=== PATIENT | female | born 1955 | race Caucasian/White ===

== ENCOUNTER → 2020-05-26 16:07 | Outpatient (CLI) | payer BC, SELFPAY ==
[2020-05-26 16:19] LABS: Basophils # 0.1 K/mm3 (0-0.2); Basophils % 0.9 % (0.1-2.0); Eosinophils # 0.3 K/mm3 (0.0-0.4); Eosinophils % 2.4 % (0.1-12.0); Hematocrit 50.1 % (37.0-47.0); Hemoglobin 16.4 g/dL (12.2-16.2); Lymphocytes # 4.7 K/mm3 (0.7-4.5); Lymphocytes % 40.5 % (10-50); Mean Corpuscular HGB Conc 32.7 g/dL (31.8-35.4); Mean Corpuscular Hemoglobin 30.7 pg (27.0-31.2); Mean Corpuscular Volume 93.9 fl (81-99); Mean Platelet Volume 10.8 fl (7.4-10.4); Monocytes # 0.6 K/mm3 (0.1-1.0); Monocytes % 5.3 % (1.7-9.3); Neutrophils # 5.9 K/mm3 (1.8-7.8); Neutrophils % 50.9 % (37.0-80.0); Platelet Count 231 K/mm3 (142-424); Red Blood Count 5.34 M/mm3 (4.20-5.40); Red Cell Distribution Width 13.7 % (11.5-17.5); White Blood Count 11.6 K/mm3 (4.8-10.8)
[2020-05-26 16:58] LABS: Alanine Aminotransferase 25 U/L (12-78); Albumin Level 4.1 g/dl (3.5-5.0); Albumin/Globulin Ratio 1.5 (1.1-1.8); Alkaline Phosphatase 206 U/L (38-126); Anion Gap 13.2 mEq/L (5-15); Aspartate Amino Transferase 27 U/L (14-36); Bilirubin,Total 0.5 mg/dl (0.2-1.3); Blood Urea Nitrogen 14 mg/dl (7-17); Calcium 9.7 mg/dl (8.4-10.2); Carbon Dioxide 30 mmol/L (22.0-30.0); Chloride 95 mmol/L (98-107); Chol/HDL Ratio 3.4 (1-3.5); Cholesterol 148 mg/dl (140-200); Estimated Glomerular Filt Rate 73 ml/min (>60); GFR (African American) 88 ML/MIN (>60); Globulin 2.7 g/dL (1.3-3.2); HDL Cholesterol 44 mg/dl (40-60); Potassium 4.2 mmoL/L (3.5-5.1); Sodium 134 mmol/L (136-145); Total Protein,Serum 6.8 g/dl (6.3-8.2); Triglycerides 196 mg/dl (30-150); VLDL Cholesterol 39 mg/dL (0-40)
[2020-05-26 17:08] LABS: Direct LDL Cholesterol 71.78 mg/dL (100-129)
[2020-05-26 17:12] LABS: 25-OH Vitamin D, Total 14.7 ng/mL (30-100)
[2020-05-26 17:13] LABS: Free T4 (Free Thyroxine) 1.61 ng/dl (0.78-2.19)
[2020-05-26 17:28] LABS: Thyroid Stimulating Hormone 3.15 uIU/mL (0.465-4.68)
[2020-05-26 17:56] LABS: Glucose 499 mg/dl (74-100)
== END ==
PROVIDERS: Visit Provider Emergency Medicine
DX: E11.9 Type 2 diabetes mellitus without complications (principal); E55.9 Vitamin D deficiency, unspecified; Z79.84 Long term (current) use of oral hypoglycemic drugs
CPT/HCPCS: 80053; 80061; 82306; 83036; 84439; 84443; 85025

== ENCOUNTER → 2020-06-03 13:02 | Outpatient (CLI) | payer BC, SELFPAY ==
--- NOTE | 2020-06-03 13:02 | MR_ITS ---
PROCEDURE: MR LUMBAR SPINE WO CON CLINICAL INDICATION: back pain LOW BCK PAIN, HX SURGERY 15-20 YEARS AGO. NO PRIOR, NO INJURY COMPARISON: No exams were available for comparison TECHNIQUE: Standard multiplanar multiecho sequences are performed without contrast. 3-D MIP and myelographic images are also rendered and reviewed FINDINGS: There is normal alignment. The spinal cord ends at the L1 level. L1-L2: Mild degenerative disc disease with mild facet and ligamentum hypertrophy. The disc is bulging anteriorly with endplate osteophytes anteriorly. There is mild bilateral lateral recess and foraminal narrowing. L2-L3: Facet and ligamentum hypertrophy with bilateral lateral recess narrowing right greater than left and with mild bilateral foraminal narrowing right greater than left. L3-L4: There is a central herniated disc with superior extrusion of the disc. The disc is extruded superiorly by approximately 1.4 cm. The disc is central in nature measures 8 mm in transverse dimension and 6 mm in AP dimension. Facet and ligamentum hypertrophy is present with resultant moderate to severe bilateral lateral recess narrowing with impingement upon the traversing L4 nerve roots on both sides right greater than left. There is severe right and moderate to severe left-sided foraminal narrowing. There is canal stenosis at this level. L4-5: Degenerative disc disease. There has been lumbar surgery with laminectomy at L5 and S1 with enlargement of the thecal sac at this area.. There is facet and ligamentum hypertrophy at L4-5 with resultant severe bilateral foraminal narrowing. L5-S1: Degenerative disc disease with facet and ligamentum hypertrophy with mild bilateral foraminal narrowing. IMPRESSION: 1. Mild multilevel lumbar spondylosis. Please see above for detailed description at each level. 2. There is a central herniated disc at L3-L4 with superior extrusion of the disc. The disc is extruded superiorly by approximately 1.4 cm. The disc is central in nature measures 8 mm in transverse dimension and 6 mm in AP dimension. Facet and ligamentum hypertrophy is present with resultant moderate to severe bilateral lateral recess narrowing with impingement upon the traversing L4 nerve roots on both sides right greater than left. There is severe right and moderate to severe left-sided foraminal narrowing. There is canal stenosis at this level. 3. Postsurgical changes at L5 and S1 Dictated by: Hudson Ruff MD 06/04/2020 12:04 Hudson Ruff MD in [place] 06/04/2020 12:04
--- NOTE | 2020-06-03 13:02 | MR_ITS ---
PROCEDURE: MR CERVICAL SPINE WO CON CLINICAL INDICATION: neck pain NECK PAIN X2-3 MONTHS, NO INJURY. COMPARISON: No exams were available for comparison TECHNIQUE: Standard multiplanar multiecho sequences are performed without contrast. 3-D MIP and myelographic images are also rendered and reviewed FINDINGS: There is normal alignment. The craniocervical junction has an unremarkable appearance. C2-C3: Minimal central disc protrusion versus mild prominence of the posterior longitudinal ligament. This is without impingement C3-C4: Unremarkable. C4-C5: Minimal bulging disc with a minimal right paracentral disc protrusion without impingement. C5-C6: Minimal bulging disc without impingement. C6-C7: Minimal broad-based central and right paracentral disc protrusion without impingement. C7-T1: Unremarkable. No extruded herniated disc or canal stenosis. IMPRESSION: Mild multilevel spondylosis. No canal stenosis or extruded herniated disc. Please see above for detailed description at each level. Dictated by: Hudson Ruff MD 06/04/2020 11:43 Hudson Ruff MD in [place] 06/04/2020 11:43
== END ==
PROVIDERS: PCP Emergency Medicine; Visit Provider Emergency Medicine
DX: M54.2 Cervicalgia (principal); M54.9 Dorsalgia, unspecified; M54.5 Low back pain
CPT/HCPCS: 72141; 72148; 76376

== ENCOUNTER → 2020-06-16 14:26 | Outpatient (CLI) | payer BC, SELFPAY ==
[2020-06-16 15:09] LABS: Amphetamine/Metha Screen,Urine Negative ng/ml (<1000)
[2020-06-16 15:10] LABS: Barbiturates Screen,Urine Negative ng/ml (<200)
[2020-06-16 15:11] LABS: Benzodiazepines Screen,Urine Negative ng/ml (<200); Cannabinoid Screen,Urine Negative ng/ml (<50)
[2020-06-16 15:12] LABS: Cocaine Screen,Urine Negative ng/ml (<300); Methadone Screen,Urine Negative ng/ml (<300)
[2020-06-16 15:13] LABS: Opiate Screen,Urine Negative ng/ml (<300)
[2020-06-16 15:14] LABS: Phencyclidine Screen,Urine Negative ng/ml (<25)
[2020-06-16 15:34] LABS: Microalbumin/Creatinine Ratio 11.8
[2020-06-16 15:35] LABS: Creatinine,Urine Random 64 mg/dL (Not Estab.)
== END ==
PROVIDERS: Visit Provider Emergency Medicine
DX: E11.9 Type 2 diabetes mellitus without complications (principal); Z79.899 Other long term (current) drug therapy; Z79.84 Long term (current) use of oral hypoglycemic drugs
CPT/HCPCS: 80305; 82043; 82570

== ENCOUNTER → 2020-07-02 10:39 | Outpatient (CLI) | payer BC, SELFPAY ==
--- NOTE | 2020-07-02 10:41 | US_ITS ---
APPROVED REPORT Exam Type: Ankle to Brachial Index Portable Track Line Marker: RT Arcelia(R) Indications Claudication: Bilaterally Rest Pain: Bilaterally Current Smoker Risk Factors Hypertension Hyperlipidemia Diabetes Current Smoker Pressures/Indices Right Indices Left Indices Brachial 118.00 mmHg Brachial 114.00 mmHg Low Thigh 134.00 mmHg 1.14 Low Thigh 130.00 mmHg 1.10 Calf 150.00 mmHg 1.27 Calf 136.00 mmHg 1.15 Ankle(PT) 137.00 mmHg 1.16 Ankle(PT) 143.00 mmHg 1.21 Ankle(DP) 131.00 mmHg 1.11 Ankle(DP) 137.00 mmHg 1.16 Digit 108.00 mmHg 0.92 Digit 121.00 mmHg 1.03 Findings RT ISAIAH=1.2 LT ISAIAH=1.0 RT TBI=0.9 LT TBI=1.0 Normal pulses Normal waveforms Conclusion RT ISAIAH=1.2 LT ISAIAH=1.0 RT TBI=0.9 LT TBI=1.0 Normal pulses Normal waveforms Normal appearing resting noninvasive lower extremity arterial study. Electronically signed by : Hudson Ruff MD 07/02/2020 14:15:28
== END ==
PROVIDERS: PCP Emergency Medicine; Visit Provider Nurse Practitioner
DX: R09.89 Other specified symptoms and signs involving the circulatory and respiratory systems (principal)
CPT/HCPCS: 93923

== ENCOUNTER → 2020-07-14 14:43 | Outpatient (CLI) | payer BC, SELFPAY ==
[2020-07-14 18:04] LABS: Amphetamine/Metha Screen,Urine Negative ng/ml (<1000)
[2020-07-14 18:05] LABS: Barbiturates Screen,Urine Negative ng/ml (<200); Benzodiazepines Screen,Urine Negative ng/ml (<200)
[2020-07-14 18:06] LABS: Cannabinoid Screen,Urine Negative ng/ml (<50)
[2020-07-14 18:07] LABS: Cocaine Screen,Urine Negative ng/ml (<300); Methadone Screen,Urine Negative ng/ml (<300)
[2020-07-14 18:08] LABS: Opiate Screen,Urine Negative ng/ml (<300)
[2020-07-14 18:09] LABS: Phencyclidine Screen,Urine Negative ng/ml (<25)
== END ==
PROVIDERS: Visit Provider Emergency Medicine
DX: Z79.899 Other long term (current) drug therapy (principal)
CPT/HCPCS: 80305

== ENCOUNTER → 2020-08-11 13:39 | Outpatient (CLI) | payer BC, SELFPAY ==
[2020-08-13 14:01] LABS: C-Peptide 2.9 ng/mL (1.1-4.4)
== END ==
PROVIDERS: Visit Provider Nurse Practitioner Family
DX: E11.9 Type 2 diabetes mellitus without complications (principal); Z79.84 Long term (current) use of oral hypoglycemic drugs
CPT/HCPCS: 84681

== ENCOUNTER → 2020-08-13 19:25 | Outpatient (CLI) | payer BC, SELFPAY ==
[2020-08-13 20:03] LABS: Amphetamine/Metha Screen,Urine Negative ng/ml (<1000); Barbiturates Screen,Urine Negative ng/ml (<200)
[2020-08-13 20:04] LABS: Benzodiazepines Screen,Urine Negative ng/ml (<200)
[2020-08-13 20:05] LABS: Cannabinoid Screen,Urine Negative ng/ml (<50); Cocaine Screen,Urine Negative ng/ml (<300)
[2020-08-13 20:06] LABS: Methadone Screen,Urine Negative ng/ml (<300)
[2020-08-13 20:07] LABS: Opiate Screen,Urine Negative ng/ml (<300); Phencyclidine Screen,Urine Negative ng/ml (<25)
== END ==
PROVIDERS: Visit Provider Emergency Medicine
DX: M51.36 Other intervertebral disc degeneration, lumbar region (principal)
CPT/HCPCS: 80305

== ENCOUNTER → 2020-09-02 09:08 | Outpatient (POV) | payer BC, SELFPAY ==
[2020-09-02 09:15] VITALS: BP 117/61; PULSE 74; RESP 18; TEMP 36.8; O2SAT 98; BMI 25.9
--- NOTE | 2020-09-02 10:26 | HMH.PMCON ---
Assessment and Plan (1) Lumbar radiculopathy Status: Chronic Category: Medical Code(s): M54.16 - Radiculopathy, lumbar region (2) Spinal stenosis, lumbar region with neurogenic claudication Status: Chronic Category: Medical Code(s): M48.062 - Spinal stenosis, lumbar region with neurogenic claudication (3) DDD (degenerative disc disease) Status: Chronic Category: Medical - Assessment and plan all Dx Assessment and Plan for all problems:: We will schedule the patient for an epidurogram. I do not know if she is a candidate for minimally invasive lumbar decompression due to her previous surgery. She is unsure of what kind of surgery she had. I will follow-up with her after reassess her symptoms at that time she has been instructed to call the office if she has any issues prior to her next appointment. Dr. Higuera has reviewed this note and agrees with this plan of care. This note was dictated using voice recognition software and may contain errors or omissions HPI - Data of Consult Consult date: 09/02/20 Requesting Physician: Ronda Singletary APRN Primary Care Provider: Luis Daniel Alonzo MD - Consult Narrative Reason for consult: Back pain History of present illness: Ms. Loomis is a 65 year old female who presents today for consultation in regard to her back pain. Patient rates it a 6 out of 10 she has numbness and tingling in bilateral lower extremities. She is having surgery by Dr. Keenan in the past. Patient is unsure of what kind of surgery she had. She has a recent MRI showing disc bulge along with ligamentum flavum hypertrophy patient states that most of her pain is when she standing and walking she gets relief by leaning forward or sitting down. We did discuss a minimally invasive lumbar decompression. Patient has been seen by the [facility] and received injections however she states she was sedated during this time and has no idea what injection she received. She states that she got no relief from any of them. She was also given oxycodone at that time. She states that she then moved to [place] for 2 years and has recently returned. CC: Ronda Singletary APRN [facility] History I have reviewed the patient's past medical history: Yes Medical History: Reports:: Asthma, Cancer, Diabetes Mellitus Type 2, Hyperlipidemia, Hypertension Denies:: Diabetes Mellitus Type 1, MRSA *Have you ever received a pneumonia vaccine?: Yes *Have you received a flu vaccine this season?: Yes Other Medical History: Reports: Arthritis Other Surgeries: Yes: Appendectomy, Cancer Surgery, Hysterectomy-Total, Other Amputation: No Fractures: No - *Social History Smoking Status: Current every day smoker Tobacco Type: cigarettes # Packs/Day (cigarettes): 1 Alcohol Intake: never Substance Use Type: denies use *Occupational Status:: other Housing: house Household Members: other *Travel in the last 8 weeks: None Family Hx:: Unable to obtain Review of Systems - Review of Systems ROS General: no recent weight change, no fever, no sleep disturbances Respiratory: no cough, no shortness of air, no recurring pulmonary infections Cardiovascular/Peripheral Vascular: No chest pain, No palpitations, no edema, no shortness of breath. Gastrointestinal: no new onset incontinence, normal bowel movements reported Genitourinary: no new onset incontinence Musculoskeletal: [Back pain, leg pain Psychiatric: normal mood/ affect Neurological: [denies new onset weakness in extremities], [denies new onset balance issues] Meds Home Medications Medication Instructions Recorded Confirmed Type aspirin 81 mg tablet,delayed 81 mg PO DAILY #90 tab 05/27/20 08/13/20 Rx release atorvastatin 10 mg tablet 10 mg PO QHS #90 tab 05/27/20 08/13/20 Rx cholecalciferol (vitamin D3) 25 1,000 unit PO DAILY #90 cap 05/27/20 08/13/20 Rx mcg (1,000 unit) capsule ergocalciferol (vitamin D2) 1,250 50,000 unit PO QWEEK 90 Days #12
== END ==
PROVIDERS: PCP Emergency Medicine; Visit Provider Clinical Nurse Specialist Family Health
DX: M54.16 Radiculopathy, lumbar region (principal); M48.062 Spinal stenosis, lumbar region with neurogenic claudication
CPT/HCPCS: 99202; G0463

== ENCOUNTER 2020-09-17 11:06 | Day surgery (SDC) | payer BC, SELFPAY ==
[2020-09-17 11:13] VITALS: BP 115/69; PULSE 79; RESP 18; TEMP 36.8; O2SAT 98; BMI 25.9
--- NOTE | 2020-09-17 11:31 | HMH.PMPROC ---
- Procedure Date: 09/17/20 Time: 11:31 Anesthesiologist:: Garland Higuera MD Complications:: None Pre-procedure Diagnosis:: Degenerative disc disease of lumbar spine with lumbar radiculopathy symptoms and lumbar spinal stenosis with neurogenic claudication symptoms. Postlaminectomy syndrome of lumbar spine Post-procedure Diagnosis:: Same Indications for Procedure:: Patient is a pleasant 65-year-old white female who we are treating for low back pain with lumbar radiculopathy symptoms and lumbar spinal stenosis with neurogenic claudication symptoms. She has had previous laminectomy. She does have spinal stenosis. We will do a lumbar epidural steroid injection with epidurogram to assess levels of stenosis and see if she is a candidate for minimally invasive lumbar decompression. Procedure Details:: Informed consent was obtained and the risk and benefits of the procedure was explained to the patient. The patient was taken to the procedure room. The patient was placed prone on the procedure table. The patient was prepped and draped in sterile fashion. C-arm fluoroscopy was used to view the lumbar spine. Skin and subcutaneous tissues were anesthetized using lidocaine. I placed an 18-gauge epidural needle and advanced into the L4-L5 interspace using fluoroscopic guidance and [id number] to air. After confirmation of needle placement in the epidural space with dye I injected 2 mL of lidocaine 1.5% with Depo-Medrol 80 mg. Patient tolerated the procedure well with no complications. Plan and Disposition:: We will follow-up with her in 2 weeks. Will reevaluate symptoms at that time. Because of her previous surgery she is not a candidate for minimally invasive lumbar decompression. If these epidural steroid injections do not give her long-lasting relief she may be a candidate for spinal cord stimulation to help with her back pain and leg pain.
[2020-09-17 11:33] VITALS: BP 114/67; PULSE 77; RESP 18; O2SAT 98
[2020-09-17 11:34] VITALS: BP 138/75; PULSE 68; RESP 18; O2SAT 98
[2020-09-17 11:43] VITALS: BP 138/75; PULSE 68; RESP 20; O2SAT 96
== END 2020-09-17 11:44 | disposition home or self-care (01) ==
LOC: SC.PAINP 11:07
PROVIDERS: PCP Emergency Medicine; Visit Provider Anesthesiology
DX: M51.16 Intervertebral disc disorders with radiculopathy, lumbar region (principal); M48.062 Spinal stenosis, lumbar region with neurogenic claudication; M96.1 Postlaminectomy syndrome, not elsewhere classified; E78.5 Hyperlipidemia, unspecified; I10 Essential (primary) hypertension; J45.909 Unspecified asthma, uncomplicated; M19.90 Unspecified osteoarthritis, unspecified site; E11.9 Type 2 diabetes mellitus without complications; Z72.0 Tobacco use; Z90.710 Acquired absence of both cervix and uterus; Z85.42 Personal history of malignant neoplasm of other parts of uterus
CPT/HCPCS: 62323; J1040; Q9966

== ENCOUNTER → 2020-10-11 10:57 | Outpatient (POV) | payer BC, SELFPAY ==
[2020-10-11 11:08] VITALS: BP 103/68; PULSE 88; RESP 17; O2SAT 95; BMI 25.9
--- NOTE | 2020-10-11 11:18 | HMH.PAINSOAP ---
[facility] Pain Management SOAP Note Subjective:: 65-year-old white female who presents today for follow-up after lumbar epidural steroid injection and epidurogram. She is not a candidate for minimally invasive decompression due to previous surgical intervention. Patient potentially could be a candidate for neuro stimulation she has low back pain and leg pain. She has had surgery in the past with no relief. She is tried and failed injections, medications, anti-inflammatories and physical therapy. Patient and I discussed neuro stimulation I also gave her information regarding it. Patient understands she needs to have a psychological evaluation prior. We will move forward with this. ROS General: no recent weight change, no fever, no sleep disturbances Respiratory: no cough, no shortness of air, no recurring pulmonary infections Cardiovascular/Peripheral Vascular: No chest pain, No palpitations, no edema, no shortness of breath. Gastrointestinal: no new onset incontinence, normal bowel movements reported Genitourinary: no new onset incontinence Musculoskeletal: Back pain, leg pain Psychiatric: normal mood/ affect Neurological: [denies new onset weakness in extremities], [denies new onset balance issues] Objective:: Physical Exam General: Alert and oriented x3, no acute distress, pleasant and cooperative, [on room air] Lungs: Resps E/U, Symmetrical chest expansion, Eyes: PERRL Musculoskeletal: Flexion and extension of lumbar spine somewhat guarded secondary to pain, deep tendon reflexes normal, strength in upper and lower extremities [5/5], [abnormal gait noted] Neurological: speech clear, pharmacy operations coordinator equal, no gross sensory deficits Assessment:: Degenerative disc disease lumbar spine lumbar radiculopathy, postlaminectomy syndrome lumbar spine, back pain Plan:: We will send the patient for psychological evaluation to determine if she is a candidate for neurostimulator. We will follow up with her afterwards address any issues she may have we will also discuss any questions she has at that time she was given education on neurostimulator 10. She has been instructed to call the office if she has any issues prior to this appointment. Dr. Higuera has reviewed this note and agrees with this plan of care. This note was dictated using voice recognition software and may contain errors or omissions [facility] History I have reviewed the patient's past medical history: Yes Medical History: Reports:: Asthma, Cancer, Diabetes Mellitus Type 2, Hyperlipidemia, Hypertension Denies:: Diabetes Mellitus Type 1, MRSA, Seizures *Have you ever received a pneumonia vaccine?: No *Have you received a flu vaccine this season?: No Other Medical History: Reports: Arthritis Other Surgeries: Yes: Appendectomy, Cancer Surgery, Hysterectomy-Total, Other Amputation: No Fractures: No - *Social History Smoking Status: Current every day smoker Tobacco Type: cigarettes # Packs/Day (cigarettes): 1 Alcohol Intake: never Substance Use Type: denies use *Occupational Status:: retired Housing: house Household Members: other *Travel in the last 8 weeks: None Family Hx:: Diabetes, Cancer, Stroke, Hypertension, Hyperlipidemia, Asthma
== END ==
PROVIDERS: PCP Emergency Medicine; Visit Provider Clinical Nurse Specialist Family Health
DX: M51.16 Intervertebral disc disorders with radiculopathy, lumbar region (principal); M96.1 Postlaminectomy syndrome, not elsewhere classified
CPT/HCPCS: 99212; G0463